=== PATIENT | male | born 1950 | race Caucasian/White ===

== ENCOUNTER 2018-09-20 10:09 | Day surgery (SDC) | payer MEDICARE, OTHER ==
[~2018-09-20] VITALS: Ht 172.7 cm; Wt 72.5 kg
[~2018-09-20 10:09] MED LIST: ASCO500 PO; CHOL10002 PO; Glucosamine H1500 MG PO; Lovastatin20 MG PO; Omeprazole20 M1; Prinivil10 MG PO; Saw Palmetto160 MG PO; TAMS.4ER PO; Viagra100 MG PO; Zinc Gluconate100 MG PO
[2018-09-20] MEDS ORDERED: LISI5 (10:56)
--- NOTE | 2018-09-20 11:21 | NUR ---
09/20/18 1121 Yelena Capellan RECIEVED REPORT FROM [facility].ALLYB
== END 2018-09-20 12:19 | disposition home or self-care (01) ==
LOC: ORSCSDS 10:09
PROVIDERS: Internal Medicine Gastroenterology
PROC: 0DJD8ZZ Inspection of Lower Intestinal Tract, Via Natural or Artificial Opening Endoscopic (ICD-10-PCS; principal; 2018-09-20 11:15)
DX: Z12.11 Encounter for screening for malignant neoplasm of colon (principal); Z83.71 Family history of colonic polyps; K64.8 Other hemorrhoids; K57.30 Diverticulosis of large intestine without perforation or abscess without bleeding; I10 Essential (primary) hypertension; Z79.82 Long term (current) use of aspirin; Z79.899 Other long term (current) drug therapy
CPT/HCPCS: J7120

== ENCOUNTER → 2019-08-22 | Outpatient (CLI) | payer MEDICARE ==
[~2019-08-22] MED LIST changes: +LISI5
[2019-08-22 11:40] LABS: Source, Urine Clean Catch
[2019-08-22 13:39] LABS: Bilirubin, Urine Neg (Neg); Blood, Urine Neg (Neg); Glucose Qualitative, Urine Neg (Neg); Ketones, Urine Neg (Neg); Leukocyte Esterase, Urine Neg (Neg); Nitrite, Urine Neg (Neg); Protein, Urine Neg (Neg); Urobilinogen, Urine NORM (Normal)
[2019-08-22 14:09] LABS: Appearance, Urine Clear (Clear); Color, Urine Yellow (P-Yellow)
== END ==
LOC: OLS 11:37 → LAB SHORT 11:37 → LAB FUT 08-21 10:45
PROVIDERS: Urology
DX: N39.0 Urinary tract infection, site not specified (principal)
CPT/HCPCS: 81003; 87086

== ENCOUNTER → 2021-07-28 | Outpatient (CLI) | payer MEDICARE | END | disposition home or self-care (01) | LOC: LAB 17:42 → LAB SHORT 17:42 | DX: M79.675 Pain in left toe(s) (principal) | CPT/HCPCS: 84550 ==